=== PATIENT | female | born 2000 | race Caucasian/White ===

== ENCOUNTER 2019-09-09 13:31 | Emergency (ER) | payer OTHER ==
--- NOTE | 2019-09-09 14:14 | Emergency Department Record ---
History of Present Illness - General Chief Complaint: Abdominal Pain Stated Complaint: I THINK I AM HAVING SPLEEN ISSUES Time Seen by Provider: 09/09/19 13:56 Source: Patient Mode of Arrival: Ambulatory Limitations: No limitations - History of Present Illness Initial Comments: pt is having luq ap that gets worse with inspiration. she thinks she can pal stovall her spleen. she has no other symptoms MD Complaint: Abdominal pain Onset/Timin -: Hour(s) Location: [facility] Radiation: None Migration to: No migration Consistency: Intermittent Improves With: Nothing Worsens With: Other Associated Symptoms: Denies other symptoms - Related Data Patient : No Home Medications Medication Instructions Recorded Confirmed Last Taken No Home Med [NO HOME MEDS] 09/09/19 09/09/19 Unknown Allergies Allergy/AdvReac Type Severity Reaction Status Date / Time No Known Drug Allergies Allergy Verified 09/09/19 13:44 Travel Screening - Travel/Exposure Within Last 30 Days Have you traveled within the last 30 days?: No Review of Systems Reviewed: No additional complaints except as noted below Constitutional: Reports: As per HPI. Denies: Chills, Fever, Malaise, Night sweats, Weakness, Weight change Eyes: Reports: As per HPI. Denies: Eye discharge, Eye pain, Photophobia, Vision change ENT: Reports: As per HPI. Denies: Congestion, Dental pain, Ear pain, Epistaxis, Hearing loss, Throat pain Respiratory: Reports: As per HPI. Denies: Cough, Dyspnea, Hemoptysis, Stridor, Wheezes Cardiovascular: Reports: As per HPI. Denies: Arrhythmia, Chest pain, Dyspnea on exertion, Edema, Murmurs, Orthopnea, Palpitations, Paroxysmal nocturnal dyspnea, Rheumatic Fever, Syncope Endocrine: Reports: As per HPI. Denies: Fatigue, Heat or cold intolerance, Polydipsia, Polyuria Gastrointestinal: Reports: As per HPI. Denies: Abdominal pain, Constipation, Diarrhea, Hematemesis, Hematochezia, Melena, Nausea, Vomiting Genitourinary: Reports: As per HPI. Denies: Abnormal menses, Discharge, Dyspareunia, Dysuria, Frequency, Hematuria, Incontinence, Retention, Urgency Musculoskeletal: Reports: As per HPI. Denies: Arthralgia, Back pain, Gout, Joint swelling, Myalgia, Neck pain Skin: Reports: As per HPI. Denies: Bruising, Change in color, Change in hair/nails, Lesions, Pruritus, Rash Neurological: Reports: As per HPI. Denies: Abnormal gait, Confusion, Headache, Numbness, Paresthesias, Seizure, Tingling, Tremors, Vertigo, Weakness Psychiatric: Reports: As per HPI. Denies: Anxiety, Auditory hallucinations, Depression, Homicidal thoughts, Suicidal thoughts, Visual hallucinations Hematological/Lymphatic: Reports: As per HPI. Denies: Anemia, Blood Clots, Easy bleeding, Easy bruising, Swollen glands Past Medical History - SOCIAL HISTORY Smoking Status: Never smoker Alcohol Use: Occasional Drug Use Detail:: Marijuana - RESPIRATORY Hx Respiratory Disorders: No - CARDIOVASCULAR Hx Cardio Disorders: No - NEURO Hx Neuro Disorders: No - GI Hx GI Disorders: No - Hx Genitourinary Disorders: No - ENDOCRINE Hx Endocrine Disorders: No - MUSCULOSKELETAL Hx Musculoskeletal Disorders: Yes Hx Arthritis: Yes - PSYCH Hx Psych Problems: No - HEMATOLOGY/ONCOLOGY Hx Hematology/Oncology Disorders: No Family Medical History Any Significant Family History?: Yes Hx Heart Disease: Grandparents Physical Exam - General General Appearance: Alert, Oriented x3, Cooperative, Mild distress - Head Head exam: Normal inspection - Eye Eye exam: Normal appearance, PERRL, EOMI Pupils: Normal accommodation - ENT ENT exam: Normal exam, Mucous membranes moist, Normal external ear exam, Normal orophraynx Ear exam: Normal external inspection. negative: External canal tenderness Nasal Exam: Normal inspection. negative: Discharge, Sinus tenderness Mouth exam: Normal external inspection, Tongue normal Teeth exam: Normal inspection. negative: Dental caries Throat exam: Normal inspection. negative: Tonsillar erythema, Tonsillar exudate - Neck Neck exam: Normal inspection, Full ROM. negative: Tenderness - Respiratory Respiratory exam: Normal lung sounds bilaterally. negative: Respiratory distress - Cardiovascular Cardiovascular Exam: Regular rate, Normal rhythm, Normal heart sounds - GI/Abdominal GI/Abdominal exam: Soft, Normal bowel sounds. negative: Tenderness - Rectal Rectal exam: Deferred - exam: Deferred - Extremities Extremities exam: Normal inspection, Full ROM, Normal capillary refill. negative: Tenderness - Back Back exam: Reports: Normal inspection, Full ROM. Denies: Muscle spasm, Rash noted, Tenderness - Neurological Neurological exam: Alert, CN II-XII intact, Normal gait, Oriented X3 - Psychiatric Psychiatric exam: Normal affect, Normal mood - Skin Skin exam: Dry, Intact, Normal color, Warm Course Vital Signs 09/09/19 13:37 Temperature 98.0 F Pulse Rate 83 Respiratory 20 Rate Blood Pressure 116/71 Pulse Ox 97 - Reevaluation(s) Reevaluation #1: 09/09/19 16:53 ct shows pneumonia and mass in r lung 09/09/19 17:43 d/w dr pena who felt pt should go to [facility]. d/w dr hoang at [facility] who accepted pt Medical Decision Making - Lab Data Result diagrams: 09/09/19 14:18 09/09/19 14:18 Disposition Disposition: Transfer Disposition: Acute Care Hospital Transfer Transfer To: [facility] Reason For Transfer: needs pulmonology Accepting Physician: dr hoang Time Discussed w/Accepting Physician: 16:53 Forms: Patient Portal Access Quality - Quality Measures Quality Measures: N/A - Blood Pressure Screening Does Patient Have Any of the Following: No Blood Pressure Classification: Normal BP Reading Systolic Measurement: 116 Diastolic Measurement: 71 Screening for High Blood Pressure: < Normal BP, F/U Not Required > [G8783]
[2019-09-09 14:22] LABS: ABSOLUTE NEUTROPHIL COUNT 2.31; BASO % 0.8 % (0-6); EOS % 2.3 % (0-6); GRAN % 58.4 % (47-80); HEMATOCRIT 37.6 % (35.0-47.0); HEMOGLOBIN 12.5 gm/dl (11.6-16.0); LYMPH % 25.3 % (16-45); MEAN CELL VOLUME 87.4 fl (81-97); MEAN CORPUSCULAR HEMOGLOBIN 29.1 pg (27-33); MEAN CORPUSCULAR HGB CONC 33.2 g/dl (32-36); MEAN PLATELET VOLUME 9.5 fl (7.4-10.4); MONO % 13.2 % (0-9); PLATELET COUNT 297 K/uL (130-400); RED CELL DISTRIBUTION WIDTH 12.8 % (11.5-14.5)
[2019-09-09 14:35] LABS: BLOOD UREA NITROGEN 7 mg/dL (6-20); CREATININE 0.4 mg/dL (0.5-0.9); EST GLOMERULAR FILTRATION RATE > 60 mL/min
[2019-09-09 14:38] LABS: GLUCOSE,RANDOM 87 mg/dL (74-109)
--- NOTE | 2019-09-09 15:48 | CT ANGIOGRAM REPORT ---
EXAMINATION: CT Angiography Chest - PE Protocol EXAM DATE: 09/09/2019 3:16 PM TECHNIQUE: Thin spiral CT images were done from the lung bases through lung apices after infusion of intravenous contrast. Multiplanar 2-D reconstructions were performed. For better evaluation of vessel anatomy and pathology, post-processing was done to include MIP reconstructions. IV Contrast: The type and roxie unt of contrast are recorded in the medical record. INDICATION: pain w inspiration, hi d-dimer COMPARISON: None FINDINGS: There are no filling defects in the pulmonary arterial system. There is a 2.6 x 2.2 cm central mass or lymphadenopathy in the right pulmonary hilum, engulfing sever al of the hilar blood vessels. There is focal atelectasis or infiltrate in the right upper lobe perip heral to the mass, suggesting bronchial obstruction. The left lung is clear. No pleural effusions. IMPRESSION: 1. No evidence of PE. 2. Right hilar lymphadenopathy versus central mass with peripheral lung consolidation, possible infec tious or inflammatory disease versus neoplasm. If nonsurgical biopsy is desired, consultation with a n interventional radiologist would be necessary to determine if this is feasible. Dictated by: Stevenson Dubois MD on 09/09/2019 3:35 PM. .
[2019-09-09] MEDS ORDERED: CEFTRIAXONE 1GM/50ML BAG 1 GM/50 ML BAG IVPB ONE (16:49)
== END 2019-09-09 18:45 | disposition short-term general hospital (02) ==
LOC: ER 13:31
DX: J18.9 Pneumonia, unspecified organism (principal); R91.8 Other nonspecific abnormal finding of lung field; R07.9 Chest pain, unspecified; R79.89 Other specified abnormal findings of blood chemistry; R10.12 Left upper quadrant pain
CPT/HCPCS: 71275; 80048; 85025; 85379; 86308; 96365; 99285; J0696